=== PATIENT | female | born 1985 | race African-American/Black ===

== ENCOUNTER 2018-05-24 11:43 | Emergency (ER) | payer OTHER ==
[~2018-05-24] VITALS: Ht 154.9 cm; Wt 74.8 kg
[2018-05-24 13:35] VITALS: BP 120/68; TEMP 98
== END 2018-05-24 13:37 | disposition home or self-care (01) ==
LOC: ED 11:43
DX: J06.9 Acute upper respiratory infection, unspecified (principal)
CPT/HCPCS: 87651; 99283